=== PATIENT | male | born 1985 | race Caucasian/White ===

== ENCOUNTER 2019-06-16 09:28 | Outpatient (CLI) | payer OTHER ==
[2019-06-16 10:05] VITALS: BP 100/60
--- NOTE | 2019-06-16 10:05 | SLEEP CARE CONSULTATION ---
Information from patient questionnaire entered by Madalyn Ramirez. I have reviewed and concur with the information entered by Madalyn Ramirez. This document represents the service I personally performed and the decisions made by me, Conchita Lion MD, [facility]. History of Present Illness Reason for Visit: New patient Chief Complaint: reports: Unrefreshed sleep, Snoring, Excessive daytime sleepiness, Observed pauses in breathing, Frequent awakenings at night Duration of Symptoms: 9 MONTHS Usual bedtime: [id number] Snores at night: Yes Observed to quit breathing while asleep: Yes Sleeps alone due to snoring: No Number of times waking at night: MULTIPLE Reasons for waking at night: reports: Choking, Snoring, Gasping for air, Pain, Bathroom Toss, Turn, or Twitch while sleeping: Yes Recalls having dreams: No Usually gets out of bed at: 0700 Feels refreshed in the morning: No Morning headache: Yes Sleepy or fatigued during the day: Yes Ever fallen asleep while driving: Yes Takes day naps: Yes Dreams during day naps: No Prior sleep studies: No Additional HPI information: I had the pleasure of seeing Mr. Young along with his today regarding the possibility of him having a sleep disorder. As you know, he is a 34 year old gentleman who complains of loud snore, observed apneas, nocturnal choking, and excessive daytime sleepiness. He also has morning headaches more frequently that last for days at a time. The patient tells me that he normally goes to bed around 9:30 10 pm, and it takes him approximately just a few minutes to fall asleep. He has been told that he snores loudly and irregularly at night. He has also been observed to stop breathing in his sleep. His can still sleep in the same bed. He has never awakened because of his own snoring, choking, and having to gasp for air. In the morning he usually gets up out of the bed around 7 a.m. not feeling refreshed nor rested. He usually does not have a morning headache. During the day he complains of feeling sleepy and fatigued. His score on [place] Sleepiness Scale is 10 out of 24. He has never fallen asleep while driving nor has had any accident due to sleepiness. He usually takes naps during the day. He reports having impaired concentration during the day. Subjective Initial [place] Sleepiness Scale score: 10 Past Medical History Past Medical History: reports: Hypertension, Arthritis, Arrythmia, Anxiety, GERD, Other (HEART PALPITATIONS, HIGH CHOLESTEROL) Social History The patient's occupation is ACTIVE . Patient is and lives in [place]. Have you smoked in the past 12 months: No Alcohol use: Yes Alcohol amount and frequency: 2-3 DRINKS 2 TIMES/MONTH Caffeine use: Yes Caffeine amount and frequency: 1 PER DAY Family History Family history of sleep disordered breathing: No Allergies and Home Medications Drug allergies reviewed: Yes Home medication list reviewed: Yes Review of Systems Weight gain over past 5 years: 40 Cardiovascular: reports: high blood pressure, palpitations Respiratory: reports: shortness of breath Gastrointestinal: reports: heartburn, nausea, vomitting, diarrhea Neurological: reports: headaches, other (DIZZYNESS) Psychiatric: reports: anxiety Ear/Nose/Throat: reports: wisdom teeth removed Endocrine: reports: sluggishness Musculoskeletal: reports: joint pain, neck pain, muscle pain or cramping Immunologic: denies: sneezing, rash, itching, allergies to food or environment, other Physical Exam Vital signs obtained and entered by: Dr. Lion Blood Pressure: 100/60 Cuff size: long Heart Rate: 78 O2 Saturation: 98 Height: 5 ft 11 in Weight (kg): 180 lb Body Mass Index: 25.1 BMI Classification: Overweight Neck circumference: 15.5 Mood/affect: normal HEENT: No craniofacial malformation Nostrils: patent to airflow Turbinates: normal Septum: midline Mouth and throat: normal Soft palate: long Hard palate: normal Uvula: normal Uvula visualization: 50% Mallampati Class II Tongue: normal in size Tonsils: small Chin and jaw: normal size and position Neck: normal w/o lymphadenopathy or thyromegaly Heart: regular rate and rhythm Lungs: clear bilaterally Abdomen: soft, non-tender Extremities: no edema or clubbing Neurologic: intact, no focal deficits Impression and Plan IMPRESSION: 1. Obstructive Sleep Apnea-Hypopnea Syndrome, as suggested by history of loud and irregular snoring, observed cessation of breath while asleep, frequent awakenings during the night, unrefreshed sleep, morning headache, and daytime hypersomnolence. Narrow oropharynx and obesity are common predisposing factors for obstructive sleep apnea-hypopnea syndrome. Untreated obstructive sleep apnea can also cause hypertension. Pathophysiology of sleep-disordered breathing was discussed. I recommend proceeding to polysomnography to confirm the diagnosis and to assess severity. If he has significant sleep disordered breathing, a manual CPAP titration study will also be performed to find the optimal treatment pressure. I informed the patient of what the sleep studies involve and after some discussion, he agreed to proceed. Plan: 1. Schedule polysomnography + manual CPAP titration study and return in 1 to 2 weeks after the study to discuss result and initiate therapy. 2. Avoid long distance driving or when feeling sleepy. 3. Avoid alcohol, sedative and muscle relaxant around bedtime. 4. Attempt to lose weight. I spent 100% of this 15 minute visit face to face with the patient with greater than 50% of this was spent time counseling the patient and coordination of care.
== END 2019-06-16 09:29 | disposition home or self-care (01) ==
LOC: SC 09:28
PROVIDERS: ATTEND Internal Medicine Pulmonary Disease
DX: R06.83 Snoring (principal); R06.81 Apnea, not elsewhere classified; G47.8 Other sleep disorders; R51 Headache; G47.10 Hypersomnia, unspecified
CPT/HCPCS: 99203; 99212

== ENCOUNTER 2019-07-01 19:06 | Outpatient (CLI) | payer OTHER | END 2019-07-01 19:07 | disposition home or self-care (01) | LOC: SC 19:06 | PROVIDERS: ATTEND Internal Medicine Pulmonary Disease | DX: R06.83 Snoring (principal) | CPT/HCPCS: 95810 ==

== ENCOUNTER 2019-07-29 08:14 | Outpatient (CLI) | payer OTHER ==
--- NOTE | 2019-07-29 09:04 | SLEEP CARE CONSULTATION ---
Information from patient questionnaire entered by Madalyn Ramirez. I have reviewed and concur with the information entered by Mdaalyn Ramirez. This document represents the service I personally performed and the decisions made by me, Lesley Coy RN, MSN, [employer]. History of Present Illness Initial [place] Sleepiness Scale score: 10 Current [place] Sleepiness Scale score: 13 Additional HPI information: BEBE TURNER returns for follow up of the recently performed polysomnography and informed of findings. I explained the pathophysiology behind obstructive sleep apnea. Patient does not have sleep apnea and was advised how weight gain could increase the risk of dev eloping sleep apnea in the future. I strongly encouraged the patient to not to gain weight. Patient has light snoring. Snoring can be reduced by weight loss but BMI is only 25 and he is unclear if he has snored at lower weight. Snoring can also be treated with an oral appliance from a dentist. Advised to check insurance coverage if considers. In addition, an ENT evaluation can be do to see if other treatment is indicated. Especially, since he usually has a stuffy nose which can contribute to snoring which can disrupt patient's sleep. Patient counseled not drink alcohol less than 4 hours before bedtime as it can increase snoring and apnea. Patient was cautioned about risks of drowsy driving until sleepiness symptoms resolve. Patient states he has had some drowsy driving. He was advised to bleach boiler puller at first sign of drowsiness and not to initiate driving if tired but consider other transportation options. AAS patient education on snoring and sleep apnea given and reviewed.] Sleep Study - Polysomnography Polysomnography findings: The quality of the study is good. The patient had normal sleep efficiency. The sleep architecture was relatively normal as well considering the first night effect. Respiratory monitoring showed no significant sleep disordered breathing (AHI = 1.2) or hypoxia (raul oxygen saturation of 78% but only 0.8% to the total sleep time was spent with oxygen saturation below 90%). The patient slept adequately in supine position (supine AHI = 2.0; non-supine = 0.49). Snore was light in intensity. There was no significant periodic leg movement of sleep. Cardiac rhythm was normal sinus rhythm without significant arrhythmia. No abnormal b ehavior (parasomnia) observed during the night. Allergies and Home Medications Known drug allergies: No Home medication list reviewed: Yes Allergy and home medication list: lisinopril and hctz daily rizatriptan prn - migraines amitriptyline nightly - migraines metoprololol as needed for heart palpitations muscle relaxer as needed dicyclomine prn- stomach bentenol prn stomach dexalant -daily for stomach Review of Systems Review of systems same as previous: Yes Physical Exam Blood Pressure: 120/84 Cuff size: long Heart Rate: 87 O2 Saturation: 98 Height: 5 ft 11 in Weight: 186 lb Body Mass Index: 25.9 BMI Classification: Overweight Impression and Plan 1. Snoring but no significant sleep disordered breathing. Patient advised that often weight loss will reduce snoring as well as apnea risk. An oral appliance can also be used for snoring. This would require a dental consultation. Patient is advised to check if insurance will cover. An ENT consult can also be helpful to determine if any other treatment is an option. Since patient reports daily nasal congestion, which can contribute to snoring and sleep fragmentation, patient advised to discuss this with his PCP. 2. Fatigue and daytime sleepiness symptoms. Patient is advised to follow up with his PCP for further evaluation and treatment and to seek a ENT referral as noted above. He reports a regular sleep schedule so this is not a cause of his sleepiness symptoms. He was advised of the importance of continuing a regular sleep schedule. Until then, he is cautioned not to drive when tired to reduce risk of accident and to bleach boiler puller as soon as feels drowsy to rest before proceeding. Follow up with PCP for further evaluation of fatigue and nasal congestion / snoring Consider an ENT evaluation for snoring evaluation / treatment Cautioned on drowsy driving. Do not gain weight Continue regular sleep schedule Follow up as needed. I spent 100% of this 25 minute visit face to face with the patient with greater than 50% of this was spent time counseling the patient and coordination of care.
[2019-07-29 09:05] VITALS: BP 120/84
== END 2019-07-29 08:15 | disposition home or self-care (01) ==
LOC: SC 08:14
PROVIDERS: ATTEND Nurse Practitioner Family
DX: R06.83 Snoring (principal); R06.81 Apnea, not elsewhere classified; I10 Essential (primary) hypertension; G47.10 Hypersomnia, unspecified; R53.83 Other fatigue
CPT/HCPCS: 99212; 99214